=== PATIENT | female | born 1955 | race Caucasian/White ===

== ENCOUNTER 2022-08-26 09:24 | Outpatient (REF) | payer MEDICARE, SELFPAY ==
[2022-08-26 09:43] LABS: MANUAL DIFF FLAG NO
[2022-08-26 10:26] LABS: Appearance Urine Cloudy; Color Urine Dark Yellow; Glucose Urine UA Negative (Negative); Leukocyte Esterase Urine Large (3+) (Negative); Nitrite Urine Positive (Negative); UMIC TRIGGER UACC YES; Urine Blood Negative (Negative); Urine Ketones Trace mg/dL (Negative); Urine Protein Trace mg/dL (Neg-Trace)
[2022-08-26 10:34] LABS: Basophils Percent Auto 0.3 % (0-2); Eosinophils Absolute Auto 0.1 X10*3/uL (0.0-0.4); Eosinophils Percent Auto 1.6 % (0-4); Hematocrit 41.3 % (37.0-47.0); Hemoglobin 13.8 g/dl (12.0-16.0); Imm Gran Abs Auto 0.02 X10*3/uL (0.00-0.03); Imm Gran Pct Auto 0.3 % (0.0-0.4); Lymphocytes Absolute Auto 1.6 X10*3/uL (1.2-4.9); Lymphocytes Percent Auto 23.1 % (20-40); Mean Corpuscular HGB Conc 33.4 g/dl (31.0-35.0); Mean Corpuscular Hemoglobin 31.2 pg (27.0-33.0); Mean Corpuscular Volume 93.4 fL (80.0-98.0); Mean Platelet Volume 10.6 fL (9.4-12.3); Monocytes Absolute Auto 0.6 X10*3/uL (0.1-1.2); Neutrophils Absolute Auto 4.6 x10*3/uL (2.0-8.3); Neutrophils Percent Auto 66.7 % (45-73); Platelet Count 246 X10*3/uL (160-400); Red Blood Count 4.42 X10*6/uL (4.20-5.50); Red Cell Distribution Width 12.5 % (11.0-16.0); White Blood Count 6.9 X10*3/uL (4.8-10.8)
[2022-08-26 10:52] LABS: Bacteria Urine 2+ (None Seen); RBC Urine 0-2 /HPF (0-2); UACC Culture Trigger YES; WBC Urine >50 /HPF (0-5)
[2022-08-26 11:06] LABS: Erythrocyte Sedimentation Rate 45 MM/HR (0-20)
[2022-08-26 11:19] LABS: Alanine Aminotransferase 20 U/L (0-31); Albumin Level 4.5 g/dL (3.5-5.0); Alkaline Phosphatase 135 U/L (39-117); Anion Gap 12 (12-20); Aspartate Amino Transferase 21 U/L (5-31); Bilirubin Total 1.1 mg/dL (0.0-1.0); Blood Urea Nitrogen 24 mg/dL (9-16); C Reactive Protein 1.54 mg/dL (< or = 0.50); Calcium 9.7 mg/dL (8.4-10.2); Carbon Dioxide 27 mmol/L (22-29); Chloride 105 mmol/L (96-108); Cholesterol 232 mg/dL; Estimated Glomerular Filt Rate 54; Glucose Fasting 103 mg/dL (60-99); HDL Cholesterol 52 mg/dL; LDL Cholesterol Calculated 156 mg/dl; Potassium 4.3 mmol/L (3.3-5.1); Rheumatoid Factor < 13.0 IU/mL (<15.0); Sodium 140 mmol/L (135-145); TSH reflex Free T4 1.97 uIU/mL (0.32-4.0); Total Protein 7.5 g/dL (6.5-8.0); Triglycerides 124 mg/dL; Vitamin D 25-OH Total 24.3 ng/mL (>30)
[2022-08-31 12:29] LABS: Cyclic Citrullinated Peptide <16 UNITS
[2022-09-01 12:08] LABS: Anti Nuclear Antibody Screen POSITIVE (NEGATIVE)
== END 2022-08-26 09:25 | disposition home or self-care (01) ==
LOC: HO.LAB 09:24
PROVIDERS: PCP Internal Medicine; Visit Provider Internal Medicine
DX: Z00.00 Encounter for general adult medical examination without abnormal findings (principal); R30.0 Dysuria; M25.50 Pain in unspecified joint; I10 Essential (primary) hypertension; E78.00 Pure hypercholesterolemia, unspecified; E55.9 Vitamin D deficiency, unspecified
CPT/HCPCS: 36415; 80053; 80061; 81001; 82306; 84443; 85025; 85652; 86038; 86039; 86140; 86200; 86431; 87086; 87088; 87186

== ENCOUNTER → 2022-10-12 15:06 | Outpatient (BNVA) | payer MEDICARE, SELFPAY | PROVIDERS: PCP Internal Medicine; Visit Provider Hospitalist | DX: J98.11 Atelectasis (principal); R06.00 Dyspnea, unspecified; K21.9 Gastro-esophageal reflux disease without esophagitis | CPT/HCPCS: 99202 ==

== ENCOUNTER 2022-11-01 08:54 | Outpatient (REF) | payer MEDICARE, SELFPAY ==
--- NOTE | 2022-11-01 | PFT_ITS ---
INDICATIONS: Dyspnea. SPIROMETRY: FEV1 to FVC 85% with an FEV1 2.34 L, which is 95% predicted and FVC of 2.74 L, which is 85% predicted. No significant response to bronchodilator is noted. Maximum voluntary ventilation is 119% predicted. LUNGS VOLUMES: Total lung capacity 82% predicted with an expiratory residual volume of 41% predicted. DIFFUSION CAPACITY: DLCO 78% predicted. COMPARISON: None. INTERPRETATION: No obstructive or restrictive ventilatory defect noted. No significant response to bronchodilator is noted. Maximum voluntary ventilation is actually significantly elevated suggesting good conditioning of the respiratory system. The lung volumes still demonstrate a low-normal total lung capacity, therefore, occult interstitial lung conditions could not be ruled out. Also, the expiratory residual volume is significantly decreased suggesting an elevated BMI, which may be also affecting the overall lung volumes. The patient does still have very mild diffusion impairment that does correct to normal on correcting for the alveolar volume. Clinical correlation warranted. MD MARÍA Btets/MODLorie / [id number]
--- NOTE | ~2022-11-01 | XR_ITS ---
EXAMINATION: XR CHEST 2 VIEWS CLINICAL INFORMATION: Atelectasis. COMPARISON: None. TECHNIQUE: Frontal and lateral views of the chest were obtained. FINDINGS: The heart, great vessels, pulmonary vasculature and mediastinum are normal. The lungs show no focal infiltrate, effusion or pneumothorax. There is no acute osseous abnormality. XR/XR chest 2V IMPRESSION: No active cardiopulmonary disease.
== END 2022-11-01 08:55 | disposition home or self-care (01) ==
LOC: HO.RESP 08:54
PROVIDERS: PCP Internal Medicine; Visit Provider Hospitalist
DX: J98.11 Atelectasis (principal); R06.00 Dyspnea, unspecified
CPT/HCPCS: 71046; 94060; 94727; 94729

== ENCOUNTER → 2022-12-09 14:13 | Outpatient (BNVA) | payer MEDICARE, SELFPAY | PROVIDERS: PCP Internal Medicine; Visit Provider Hospitalist | DX: J98.11 Atelectasis (principal); R06.00 Dyspnea, unspecified; R76.8 Other specified abnormal immunological findings in serum; K21.9 Gastro-esophageal reflux disease without esophagitis | CPT/HCPCS: 99212 ==

== ENCOUNTER 2023-03-19 07:21 | Outpatient (REF) | payer MEDICARE, SELFPAY ==
[2023-03-19 11:27] LABS: MANUAL DIFF FLAG NO
[2023-03-19 11:35] LABS: Basophils Percent Auto 0.2 % (0-2); Eosinophils Absolute Auto 0.1 X10*3/uL (0.0-0.4); Eosinophils Percent Auto 2.4 % (0-4); Hematocrit 33.9 % (37.0-47.0); Imm Gran Abs Auto 0.01 X10*3/uL (0.00-0.03); Imm Gran Pct Auto 0.2 % (0.0-0.4); Lymphocytes Absolute Auto 1.4 X10*3/uL (1.2-4.9); Lymphocytes Percent Auto 24.9 % (20-40); Mean Corpuscular HGB Conc 32.4 g/dl (31.0-35.0); Mean Corpuscular Hemoglobin 31.6 pg (27.0-33.0); Mean Corpuscular Volume 97.4 fL (80.0-98.0); Mean Platelet Volume 11.6 fL (9.4-12.3); Monocytes Absolute Auto 0.5 X10*3/uL (0.1-1.2); Monocytes Percent Auto 7.8 % (2-11); Neutrophils Absolute Auto 3.7 x10*3/uL (2.0-8.3); Neutrophils Percent Auto 64.5 % (45-73); Platelet Count 209 X10*3/uL (160-400); Red Blood Count 3.48 X10*6/uL (4.20-5.50); Red Cell Distribution Width 13.1 % (11.0-16.0); White Blood Count 5.8 X10*3/uL (4.8-10.8)
[2023-03-19 11:40] LABS: Appearance Urine Clear; Color Urine Yellow; Glucose Urine UA Negative (Negative); Leukocyte Esterase Urine Moderate (2+) (Negative); Nitrite Urine Negative (Negative); UMIC TRIGGER UACC YES; Urine Blood Negative (Negative); Urine Ketones Negative (Negative); Urine Protein Negative (Neg-Trace)
[2023-03-19 11:43] LABS: Bacteria Urine 4+ (None Seen); Hyaline Casts Urine 0-2 /LPF (0-2); RBC Urine 0-2 /HPF (0-2); Squamous Epithelial Cell Urine 0-2 /HPF (0-2); UACC Culture Trigger YES; WBC Urine >50 /HPF (0-5)
[2023-03-19 12:10] LABS: Alanine Aminotransferase 13 U/L (0-31); Albumin Level 3.9 g/dL (3.5-5.0); Alkaline Phosphatase 115 U/L (39-117); Anion Gap 10 (12-20); Aspartate Amino Transferase 18 U/L (5-31); Bilirubin Total 0.7 mg/dL (0.0-1.0); Blood Urea Nitrogen 18 mg/dL (9-16); Calcium 9.4 mg/dL (8.4-10.2); Carbon Dioxide 28 mmol/L (22-29); Chloride 108 mmol/L (96-108); Cholesterol 202 mg/dL; Estimated Glomerular Filt Rate > 60; Glucose Fasting 95 mg/dL (60-99); HDL Cholesterol 52 mg/dL; LDL Cholesterol Calculated 133 mg/dl; Potassium 4.3 mmol/L (3.3-5.1); Sodium 142 mmol/L (135-145); Triglycerides 87 mg/dL
[2023-03-19 12:15] LABS: TSH reflex Free T4 0.95 uIU/mL (0.32-4.0); Vitamin D 25-OH Total 51.7 ng/mL (>30)
== END 2023-03-19 07:22 | disposition home or self-care (01) ==
LOC: HO.HMGCLDS 07:21
PROVIDERS: PCP Internal Medicine; Visit Provider Internal Medicine
DX: I10 Essential (primary) hypertension (principal); E78.00 Pure hypercholesterolemia, unspecified; E55.9 Vitamin D deficiency, unspecified; R30.0 Dysuria
CPT/HCPCS: 36415; 80053; 80061; 81001; 82306; 84443; 85025; 87086; 87088; 87186

== ENCOUNTER 2023-03-28 13:20 | Outpatient (AMB) | payer MEDICARE, SELFPAY ==
[2023-03-28 13:21] VITALS: BP 118/80; PULSE 92; O2SAT 96; BMI 30.4
--- NOTE | 2023-03-28 13:21 | MHC.PC.OV ---
Vital Signs 03/28/23 13:21 Height 5 ft 5 in Weight 183 lb BMI 30.4 BP 118/80 Blood Pressure Location Lt brachial Position Sitting Pulse 92 Pulse Source Pulse Oximeter Pulse Oximetry (%) 96 Oxygen Delivery Method Room Air Intake Visit Reasons: Hypertension [employer] Instructor Required: No Accompanied by: Self / Same As Patient Allergies influenza A (H5N1) virus vaccine mo Allergy (Intermediate, Verified 03/28/23 14:25) Unknown Medication List - Last Reconciled 03/28/23 by Keith Adair MD albuterol sulfate 90 mcg/actuation 2 inhalations inhalation Q6H PRN 30 days carisoprodol 350 mg PO BID PRN 30 days cholecalciferol (vitamin D3) 25 mcg PO DAILY dicyclomine 20 mg PO BID famotidine 20 mg PO DAILY PRN gabapentin 300 mg PO TID 90 days ibuprofen-acetaminophen 125-250 mg (Advil Dual Action) 2 tabs PO Q8H PRN lisinopril-hydrochlorothiazide 20-12.5 mg 1 tab PO DAILY 90 days Tobacco use date assessed: 03/28/23 Fall risk assessment: No Falls in past year Last assessed Fall Risk: 03/28/23 Dental Screening Dental Screen Date: 03/28/23 Did you have a dental visit in the last 12 months?: No Did you have a dental problem in the last 6 months where you did not have access to dental care?: No Was dental information given to patient?: No HPI Hypertension HPI Details Patient comes in today for her follow up visit States that she feels okay Denies any headaches or dizziness Denies any chest pains, no shortness of breath No nausea/vomiting, no abdominal pain No change in bowel habits noted Needs her Carisoprodol Rx refilled; would also like to get Rx for Ibuprofen that she can take for her joint pains Had her follow-up labs done last week - to discuss her results [facility] Medical History (Updated 05/21/23 @ 23:42 by Keith Adair MD) Pure hypercholesterolemia Chronic kidney disease (CKD), stage II (mild) RICHARD positive Osteoarthritis of knees, bilateral Atelectasis GERD without esophagitis Obesity (BMI 30-39.9) Benign essential hypertension Pathological fracture of jaw (~1972) Surgical History History of colonoscopy (~2013) History of carpal tunnel surgery of right wrist Hx of emergency section (~1982) Social History Housing: Apartment Alcohol intake: never Patient Tobacco Use Status: Never used Tobacco Smoked in Last 30 Days: No e-Cigarette/Vaping Use: Never Used Use of substances other than those prescribed or required for medical reasons: No Advance Directives: No Advance Directives Information Provided: Yes service: No Current occupational status: retired 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 Cognitive needs: No Hearing needs: No Vision needs: No Questionnaire PHQ-9 Over the last 2 weeks, how often have you been bothered by any of the following problems? 1. Little interest or pleasure in doing things: not at all 2. Feeling down, depressed, or hopeless: not at all 3. Trouble falling or staying asleep, or sleeping too much: not at all 4. Feeling tired or having little energy: not at all 5. Poor appetite or overeating: not at all 6. Feeling bad about yourself - or that you are a failure or have let yourself or your family down: not at all 7. Trouble concentrating on things, such as reading the newspaper or watching television: not at all 8. Moving or speaking so slowly that other people could have noticed. Or the opposite - being so fidgety or restless that you have been moving around a lot more than usual: not at all 9. Thoughts that you would be better off or of hurting yourself in some way: not at all Total score: 0 Depression Screening Interpretation: Negative 11298 - PHQ-9 Billing: Yes Source: Developed by Drs. Brian Nazario, Yue Walden, Harsha Ferreira and colleagues, with an educational eula from [email or web address]. Thrive Questionnaire Date Thrive assessed: 03/28/23 I am a: Patient What is your living situation today?: I have a steady place to live Within the past 12 months, did the food you bought not last and you didn't have the money to get more?: Never true Within the past 12 months, did you worry whether your food would run out before you got money to buy more?: Never true Do you have trouble paying for medicines?: No Do you have trouble getting transportation to medical appointments?: No Do you have trouble paying your heating and electricity bill?: No Do you have trouble taking care of your child, family member or friend?: No Do you have trouble with day-to-day activities such as bathing, preparing meals, shopping, managing finances, etc.?: No Are you currently unemployed and looking for a job?: No Are you interested in more education?: No Please select the resources that you would like help with: None Currently or been in a relationship where the following occur: no concerns reported AUDIT C Alcohol Use Questionnaire (AUDIT-C) 1. How often do you have a drink containing alcohol?: Never 3. How often do you have six or more drinks on one occasion?: Never Total Score: 0 Score Reviewed/Action Taken: Yes WILY-7 AMB Questionnaire WILY-7 Date WILY - 7 assessed: 03/28/23 Feeling nervous, anxious, or on edge: 0 = Not at all Not being able to stop or control worryin = Not at all Worrying too much about different things: 0 = Not at all Trouble relaxin = Not at all Being so restless that it is hard to sit still: 0 = Not at all Becoming easily annoyed or irritable: 0 = Not at all Feeling afraid as if something awful might happen: 0 = Not at all Total WILY-7 score (0-4 normal; 5-9 mild; 10-14 moderate; 15-21 severe): 0 Source: Developed by Drs. Brian Nazario, Yue Walden, Harsha Ferreira and colleagues, with an educational eula from [email or web address]. Review of Systems Const Denies fatigue, Denies fever(s) and Denies headache(s) ENT Denies dysphagia, Denies dizziness, Denies otalgia, Denies headache(s), Denies odynophagia and Denies sore throat Card Denies chest pain, Denies palpitations and Denies dyspnea Resp Denies chest congestion, Denies cough and Denies dyspnea GI Denies abdominal pain, Denies constipation, Denies dysphagia, Denies heartburn, Denies diarrhea, Denies nausea, Denies odynophagia and Denies vomiting Denies difficulty voiding, Reports nocturia, Denies dysuria, Denies urinary incontinence and Denies urinary urgency Musc Reports arthralgias (right knee) Neuro Denies dizziness and Denies headache(s) Endo Denies fatigue and Denies palpitations Physical exam (Primary Care) Vital Signs: Last Vital Signs Pulse 92 03/28/23 13:21 BP 118/80 03/28/23 13:21 Pulse Ox 96 03/28/23 13:21 Oxygen Delivery Method Room Air 03/28/23 13:21 BMI result Body Mass Index 30.4 Tobacco/Smoking Status: Tobacco use Status Tobacco use date assessed 03/28/23 03/28/23 13:25 Patient Tobacco Use Status Never used Tobacco 03/28/23 13:25 Tobacco use type 08/02/22 15:38 e-Cigarette/Vaping Use Never Used 03/28/23 13:25 PHQ-9: PHQ-9 Score PHQ-9: Total score 0 03/28/23 14:29 Depression Screening Interpretation: Negative Thrive Assessment: Date of Thrive Assessment Date Thrive assessed 03/28/23 03/28/23 13:25 Currently or been in a relationship where the following occur: no concerns reported Const General: no acute distress, alert and awake HENMT Ears: TM's normal bilaterally and EAC's normal Throat: Yes posterior oropharynx normal and Yes tonsils normal (no TP congestion) Neck Neck: Yes no lymphadenopathy and Yes supple Resp Auscultation: clear to auscultation bilaterally, no rales and no wheezes Cardio Rate: regular rate Rhythm: regular rhythm Heart sounds: no murmurs GI Palpation (GI): Soft to palpation, nontender and No hepatosplenomegaly present Auscultation: normal bowel sounds Back/Spine/Pelvis Cervical Spine: Cervical spine tenderness (chronic) Thoracic/Lumbar Spine: thoracic and lumbar spine normal to inspection Extrem General: Yes no clubbing, cyanosis or edema Right lower extremity: knee Details: tenderness and normal ROM; no swelling Left lower extremity: knee Details: tenderness (mild) and normal ROM; no swelling Results Reviewed Results Reviewed: Laboratory Tests 03/19/23 03/19/23 03/19/23 07:46 07:46 07:46 WBC 5.8 Hgb 11.0 L D Hct 33.9 L Plt Count 209 Sodium 142 Potassium 4.3 Creatinine 0.83 Estimated GFR > 60 Fasting Glucose 95 Calcium 9.4 AST 18 ALT 13 Triglycerides 87 Cholesterol 202 LDL Cholesterol, Calc 133 HDL Cholesterol 52 25-OH Vitamin D Total 51.7 TSH 0.95 Ur Specific [place] 1.010 Urine Protein Negative Urine Glucose (UA) Negative Urine Blood Negative Assessment and Plan Assessment & Plan (1) Pure hypercholesterolemia: Code(s): E78.00 - Pure hypercholesterolemia, unspecified Plan: Results of her labs done last week reviewed and discussed with patient - advised that her LDL cholesterol level has improved slightly from previous Reinforced low cholesterol diet Will recheck her labs and fasting lipids in 3 to 4 months for follow up (2) Benign essential hypertension: Code(s): I10 - Essential (primary) hypertension Plan: Reinforced low sodium diet - goal is systolic BP of at least 140 mm or less Continue Lisinopril-HCT 20-25 mg QD Patient is reminded to continue monitoring her blood pressure regularly Will have her recheck her labs in 4 months for follow up (3) Dyspnea: Code(s): R06.00 - Dyspnea, unspecified Qualifiers: Dyspnea type: unspecified Qualified Code(s): R06.00 - Dyspnea, unspecified Plan: Continue Trelegy Ellipta 100-62.5-25 mcg 1 inhalation QD for now Follow up with pulmonary as scheduled - is currently undergoing further evaluation but recent chest x-rays and PFTs appear to be normal (4) Cervical spondylosis: Code(s): M47.812 - Spondylosis without myelopathy or radiculopathy, cervical region Plan: Continue Carisoprodol 350 mg 2 tablets Q HS (Rx refilled) and Gabapentin 300 mg BID (5) Osteoarthritis of knees, bilateral: Code(s): M17.0 - Bilateral primary osteoarthritis of knee Qualifiers: Osteoarthritis type: primary Qualified Code(s): M17.0 - Bilateral primary osteoarthritis of knee Plan: Is scheduled for total right knee arthroplasty with Dr. Bates at [facility] on 06/03/2023 Follow up with orthopedics as scheduled (6) GERD without esophagitis: Code(s): K21.9 - Gastro-esophageal reflux disease without esophagitis Plan: Dietary restrictions discussed Continue Famotidine 20 mg QD (7) Chronic kidney disease (CKD), stage II (mild): Code(s): N18.2 - Chronic kidney disease, stage 2 (mild) Plan: Her GFR and renal function appears stable on her recent labs Will continue to monitor her renal function closely (8) Obesity (BMI 30-39.9): Code(s): E66.9 - Obesity, unspecified Plan: Reinforced diet/exercise as tolerated/lose weight Plan Follow up in 4 months Orders: Orders Complete Blood Count Auto Diff 06/22/23 I10 - Essential (primary) hypertension Comprehensive [facility]. Panel Fast 06/22/23 E78.00 - Pure hypercholesterolemia, unspecified Lipid Panel 06/22/23 E78.00 - Pure hypercholesterolemia, unspecified TSH reflex Free T4 06/22/23 E78.00 - Pure hypercholesterolemia, unspecified Varicella IgG Antibody 03/28/23 Z28.39 - Other underimmunization status UA CC w/rflx Micro + Cult 06/22/23 R30.0 - Dysuria Vitamin D 25-OH Total 06/22/23 E55.9 - Vitamin D deficiency, unspecified Medications: New ibuprofen-acetaminophen 125-250 mg (Advil Dual Action) 2 tabs PO Q8H PRN Refilled carisoprodol 350 mg PO BID PRN 60 tabs 0RF neck pain 30 days Coding Level of Care Code Est Pt Level 4 (42017) Diagnoses Pure hypercholesterolemia E78.00 Benign essential hypertension I10 Dyspnea, unspecified type R06.00 Dyspnea type: unspecified Cervical spondylosis M47.812 Primary osteoarthritis of both knees M17.0 Osteoarthritis type: primary GERD without esophagitis K21.9 Chronic kidney disease (CKD), stage II (mild) N18.2 Obesity (BMI 30-39.9) E66.9
== END 2023-03-28 14:49 | disposition home or self-care (01) ==
PROVIDERS: Visit Provider Internal Medicine
DX: E78.00 Pure hypercholesterolemia, unspecified (principal); I12.9 Hypertensive chronic kidney disease with stage 1 through stage 4 chronic kidney disease, or unspecified chronic kidney disease; N18.2 Chronic kidney disease, stage 2 (mild); M47.812 Spondylosis without myelopathy or radiculopathy, cervical region
CPT/HCPCS: 99214

== ENCOUNTER 2023-04-21 07:54 | Emergency (ER) | payer MEDICARE, SELFPAY ==
--- NOTE | ~2023-04-21 | CT_ITS ---
EXAMINATION: CT ABDOMEN AND PELVIS WITH CONTRAST CLINICAL INFORMATION: Right lower quadrant pain. COMPARISON: None available. TECHNIQUE: Multidetector volumetric images were obtained from the superior aspect of the liver through the pubic symphysis following administration 85 mL of Omnipaque 350 intravenous contrast. Sagittal and coronal reformatted images were obtained on the technologist's workstation. Oral contrast: No This CT examination was performed using dose optimization techniques as appropriate, variously including the following: *Automated exposure control *Adjustment of mA and/or kV according to patient size (this includes techniques or standardized protocols for targeted exams where dose is matched to indication/reason for exam; i.e. extremities or head) *Use of iterative reconstruction technique DLP: 626 mGy-cm FINDINGS: LUNG BASES: The visualized lung bases are unremarkable. LIVER, GALLBLADDER, AND BILIARY TREE: Unremarkable. PANCREAS: Severe fatty atrophy no pancreatic ductal dilatation or peripancreatic abnormality. SPLEEN: Unremarkable. ADRENAL GLANDS: Unremarkable. KIDNEYS AND URETERS: The kidneys are normal in size, shape, and attenuation. No hydronephrosis, hydroureter, or calculi seen. No perinephric stranding. BLADDER: Unremarkable. GASTROINTESTINAL TRACT: The stomach, small bowel and appendix are unremarkable. The colon shows a few small diverticuli distally in the sigmoid colon without surrounding abnormality. The rectum is unremarkable. ABDOMINAL WALL: No significant hernia is appreciated. LYMPH NODES: No lymphadenopathy. VASCULAR: Mild prominence of the gonadal veins bilaterally with associated dilatation of left periuterine veins and left. PELVIC VISCERA: Unremarkable. OSSEOUS STRUCTURES: L4-5 and L5-S1 moderate degenerative disc disease and bilateral facet arthropathy. Minimal grade 1 anterolisthesis of L5 over S1 with bilateral spondylolysis. No overt acute/suspicious abnormality. CT/CT abdomen pelvis w IV con IMPRESSION: 1. No acute intra-abdominal/pelvic abnormality to explain the patient's pain. No evidence for acute appendicitis. 2. Mild prominence of the gonadal veins bilaterally with associated dilatation of the left periuterine veins. This is nonspecific, but can be seen with pelvic congestion syndrome in the appropriate clinical setting. 3. Interval sigmoid diverticulosis without evidence for acute diverticulitis. 4. L4-5 and L5-S1 moderate degenerative disc disease and bilateral facet arthropathy. Minimal grade 1 anterolisthesis of L5 over S1 with bilateral spondylolysis.
[2023-04-21 08:01] VITALS: BP 114/64; PULSE 75; RESP 16; TEMP 36.7; O2SAT 95
--- NOTE | 2023-04-21 08:12 | ED_ITS ---
HPI - Abdominal Pain General Chief Complaint: Abdominal Pain Stated Complaint: RLQ/ABD PAIN PER EMS Time Seen by Provider: 04/21/23 07:55 Source: patient Mode of arrival: EMS Limitations: no limitations History of Present Illness HPI narrative: 67 yo female with hx of GERD, CKD, HTN, arthritis here with c/o RLQ pain intermittent x 2 months - has had 2 colonoscopies as routine last one did have polyp not due for another year. She came today due to severe stabbing pain in RLQ that lasted 2 days and made her cry. She denies fevers, n/v/d or urinary symptoms. no unintentional weight loss. MD elicited complaint: abdominal pain Pertinent past history: none Onset (ago): hour(s) (530am today) Pain Consistency: now resolved Location: RLQ Severity: severe Quality: stabbing Radiation: none Migration to: no migration Relieving factors: movement Context: history of similar episodes Related Data Home Medications Medication Instructions Recorded Confirmed cholecalciferol (vitamin D3) 25 25 mcg PO DAILY 10/12/22 03/28/23 mcg (1,000 unit) capsule famotidine 20 mg tablet 20 mg PO DAILY PRN 10/12/22 03/28/23 dicyclomine 20 mg tablet 20 mg PO BID 12/09/22 03/28/23 ibuprofen 125 mg-acetaminophen 250 2 tab PO Q8H PRN 03/28/23 03/28/23 mg tablet (Advil Dual Action) Previous Rx's Medication Instructions Recorded lisinopril 20 1 tab PO DAILY 90 days #90 tabs 11/22/22 mg-hydrochlorothiazide 12.5 mg tablet albuterol sulfate 90 mcg/actuation 2 inh inhalation Q6H PRN shortness 12/21/22 aerosol inhaler of breath or wheezing 30 days #18 grams gabapentin 300 mg capsule 300 mg PO TID 90 days #270 caps 02/14/23 carisoprodol 350 mg tablet 350 mg PO BID PRN neck pain 30 03/28/23 days #60 tabs cefuroxime axetil 250 mg tablet 250 mg PO BID 7 days #14 tabs 04/21/23 Allergies Allergy/AdvReac Type Severity Reaction Status Date / Time influenza A (H5N1) virus Allergy Intermediate Unknown Verified 03/28/23 14:25 vaccine mo Review of Systems Review of Systems Constitutional : No Weight loss, No Fever, No Chills Cardiovascular : No Chest Pain, No SOB, NoEdema Respiratory : No Cough, No Sputum, No Wheezing Gastrointestinal : no Nausea, no Vomiting, no Diarrhea, positive abdominal Pain, No Hematochezia, No Melena Genitourinary : No Dysuria, No Urinary Frequency, No Hematuria, No Urgency Musculoskeletal : No joint pain, No Myalgias, No Joint Swelling Skin : No Skin Lesions, No rash Neuro : No Weakness, No Numbness, No Dizziness, No Headache Psych : No Anxiety/Panic, No Depression All other systems reviewed and are negative. [facility] Past Medical History Attestation statement: The following information was validated with the patient. Medical History RICHARD positive Atelectasis Benign essential hypertension Chronic kidney disease (CKD), stage II (mild) GERD without esophagitis Obesity (BMI 30-39.9) Osteoarthritis of knees, bilateral Pathological fracture of jaw (~1972) Surgical History History of carpal tunnel surgery of right wrist History of colonoscopy (~2013) Hx of emergency section (~1982) Social History Social History Housing: Apartment Alcohol intake: never Patient Tobacco Use Status: Never used Tobacco Smoked in Last 30 Days: No e-Cigarette/Vaping Use: Never Used Use of substances other than those prescribed or required for medical reasons: No Advance Directives: No Advance Directives Information Provided: Yes service: No Current occupational status: retired Current occupation: Working parts counter clerk. Cognitive needs: No Hearing needs: No Vision needs: No Physical Exam ED Vital Signs: Vital Signs - 24 hr 04/21/23 08:01 04/21/23 08:33 04/21/23 09:57 Temperature 98.0 F 98.0 F 97.9 F Pulse Rate 75 71 81 Respiratory Rate 16 16 14 Blood Pressure 114/64 114/64 112/59 L Pulse Oximetry 95 97 96 Oxygen Delivery Method Room Air Room Air Room Air BMI result Body Mass Index 32.2 Appearance: Alert. Oriented X3. No acute distress. Eyes: Pupils equal, round and reactive to light. ENT: Pharynx normal. Neck: Normal inspection. Neck supple. CVS: Normal heart rate and rhythm. Pulses normal. Respiratory: No respiratory distress. Breath sounds normal. Abdomen: Soft and mild RLQ pain Skin: Skin warm and dry. Normal skin color. Normal skin turgor. Extremities: No lower extremity edema. No calf ttp Neuro: Oriented X 3. No motor deficit. No sensory deficit. Course Course Course Narrative: + UA no systemic symptoms will start on ceftin 250mg BID x 7 days and DC Home Medical Decision Making Medical Decision Making [facility] Narrative: 67 yo female with hx of GERD, CKD, HTN, arthritis here with c/o RLQ pain on and off x 2 months without any associated symptoms has been following with routine colonoscopy. At this time will obtain basic labs, CT scan for renal colic, mass, constipation, appendicitis. She has no pain now so possible constipation vs renal colic. NO pain to suggest ischemia at this time. Differential Diagnosis Differential Diagnoses: The differential diagnosis associated with the presentation includes appendicitis, ovarian mass, renal colic, constipation Admission/Observation Consideration of admission/observation: Escalation of care including admission/observation considered no acute findings, VS stable, tolerating PO Lab Data [facility] Lab Attestation statement: I reviewed the patient's lab results. acute UTI 04/21/23 08:24 04/21/23 08:24 Labs: Lab Results 04/21/23 04/21/23 04/21/23 Range/Units 08:24 08:24 09:41 WBC 5.7 (4.8-10.8) X10*3/uL RBC 3.65 L (4.20-5.50) X10*6/uL Hgb 11.8 L (12.0-16.0) g/dl Hct 35.2 L (37.0-47.0) % MCV 96.4 (80.0-98.0) fL MCH 32.3 (27.0-33.0) pg MCHC 33.5 (31.0-35.0) g/dl RDW 12.2 (11.0-16.0) % Plt Count 190 (160-400) X10*3/uL MPV 10.5 (9.4-12.3) fL Immature Gran % (Auto) 0.2 (0.0-0.4) % Neut % (Auto) 68.2 (45-73) % Lymph % (Auto) 22.0 (20-40) % [facility] % (Auto) 7.6 (2-11) % Eos % (Auto) 1.8 (0-4) % Baso % (Auto) 0.2 (0-2) % Lymph # (Auto) 1.3 (1.2-4.9) X10*3/uL [facility] # (Auto) 0.4 (0.1-1.2) X10*3/uL Eos # (Auto) 0.1 (0.0-0.4) X10*3/uL Baso # (Auto) 0.0 (0.0-0.2) X10*3/uL Abs Immat Gran (auto) 0.01 (0.00-0.03) X10*3/uL Absolute Neuts (auto) 3.9 (2.0-8.3) x10*3/uL Absolute Nucleated RBC 0.000 (0.0-0.012) X10*3/uL Nucleated RBC % (auto) 0.0 (0.0-0.2) /100WBC Sodium 141 (135-145) mmol/L Potassium 4.0 (3.3-5.1) mmol/L Chloride 109 H (96-108) mmol/L Carbon Dioxide 25 (22-29) mmol/L Anion Gap 11 L (12-20) BUN 23 H (9-16) mg/dL Creatinine 0.85 (0.5-1.4) mg/dL Estim Creat Clear Calc 70.2 Estimated GFR > 60 Random Glucose 119 H (60-115) mg/dL Calcium 9.6 (8.4-10.2) mg/dL Magnesium 2.0 (1.6-2.6) mg/dL Total Bilirubin 0.6 (0.0-1.0) mg/dL Direct Bilirubin 0.2 (0.0-0.5) mg/dL AST 24 (5-31) U/L ALT 17 (0-31) U/L Alkaline Phosphatase 110 (39-117) U/L Total Protein 7.3 (6.5-8.0) g/dL Albumin 4.0 (3.5-5.0) g/dL Lipase 6 L (8-78) U/L Urine Color Yellow Urine Appearance Clear Urine pH 6.0 (5.0-9.0) Ur Specific [place] 1.025 (1.005-1.025) Urine Protein Negative (Neg-Trace) mg/dL Urine Glucose (UA) Negative (Negative) mg/dL Urine Ketones Negative (Negative) mg/dL Urine Blood Negative (Negative) Urine Nitrite Positive H (Negative) Ur Leukocyte Esterase Moderate (2+) H (Negative) Urine RBC 0-2 (0-2) /HPF Urine WBC 21-50 H (0-5) /HPF Ur Squamous Epith Cells 0-2 (0-2) /HPF Urine Bacteria 4+ (None Seen) Hyaline Casts 0-2 (0-2) /LPF Independent Interpretation I performed an independent interpretation of an: CT Scan (normal appendix) Radiology Impression Discussion of test interpretation with radiology: I have reviewed the radiologist's reading. Independent Historian Clinical information obtained from an independent historian. History obtained from or confirmed by: EMS External Record Review External record reviewed: Office record Prescription Management I considered prescription management with: Antibiotic Medications Administered Discontinued Medications Generic Name Dose Route Start Last Admin Trade Name Freq PRN Reason Stop Dose Admin Iohexol 85 ml 04/21/23 09:11 04/21/23 09:11 Iohexol 350 Mg/Ml 100 Ml Infus..Btl IV 04/21/23 09:12 85 ml ONCE ONE Administration Discharge Plan Discharge Clinical Impression: Acute lower UTI Abdominal pain Qualifiers: Abdominal location: right lower quadrant Qualified Code(s): R10.31 - Right lower quadrant pain Patient Disposition: Home, Self-Care Instructions: Urinary Tract Infection in Women (ED), Abdominal Pain (ED) Additional Instructions: return for worsening pain, fevers, vomiting or any other concerns. take a probiotic while on antibiotic. 1.? No acute intra-abdominal/pelvic abnormality to explain the patient's pain. No evidence for acute appendicitis. 2.? Mild prominence of the gonadal veins bilaterally with associated dilatation of the left periuterine veins. This is nonspecific, but can be seen with pelvic congestion syndrome in the appropriate clinical setting. 3.? Interval sigmoid diverticulosis without evidence for acute diverticulitis. 4.? L4-5 and L5-S1 moderate degenerative disc disease and bilateral facet arthropathy. Minimal grade 1 anterolisthesis of L5 over S1 with bilateral spondylolysis. Prescriptions: New cefuroxime axetil 250 mg tablet 250 mg PO BID 7 Days Qty: 14 0RF No Action albuterol sulfate 90 mcg/actuation HFA aerosol inhaler 2 inh inhalation Q6H PRN (Reason: shortness of breath or wheezing) 30 Days Qty: 18 12RF gabapentin 300 mg capsule 300 mg PO TID 90 Days Qty: 270 1RF famotidine 20 mg tablet 20 mg PO DAILY PRN lisinopril-hydrochlorothiazide 20-12.5 mg tablet 1 tab PO DAILY 90 Days Qty: 90 1RF Advil Dual Action 125-250 mg tablet 2 tab PO Q8H PRN carisoprodol 350 mg tablet 350 mg PO BID PRN (Reason: neck pain) 30 Days Qty: 60 0RF dicyclomine 20 mg tablet 20 mg PO BID cholecalciferol (vitamin D3) 25 mcg (1,000 unit) capsule 25 mcg PO DAILY
[2023-04-21 08:27] LABS: MANUAL DIFF FLAG NO
[2023-04-21 08:33] VITALS: BP 114/64; BP 148/88; PULSE 71; PULSE 81; RESP 16; TEMP 36.7; O2SAT 97; O2SAT 99; BMI 32.2
[2023-04-21 08:33] LABS: Basophils Percent Auto 0.2 % (0-2); Eosinophils Absolute Auto 0.1 X10*3/uL (0.0-0.4); Eosinophils Percent Auto 1.8 % (0-4); Hematocrit 35.2 % (37.0-47.0); Hemoglobin 11.8 g/dl (12.0-16.0); Imm Gran Abs Auto 0.01 X10*3/uL (0.00-0.03); Imm Gran Pct Auto 0.2 % (0.0-0.4); Lymphocytes Absolute Auto 1.3 X10*3/uL (1.2-4.9); Mean Corpuscular HGB Conc 33.5 g/dl (31.0-35.0); Mean Corpuscular Hemoglobin 32.3 pg (27.0-33.0); Mean Corpuscular Volume 96.4 fL (80.0-98.0); Mean Platelet Volume 10.5 fL (9.4-12.3); Monocytes Absolute Auto 0.4 X10*3/uL (0.1-1.2); Monocytes Percent Auto 7.6 % (2-11); Neutrophils Absolute Auto 3.9 x10*3/uL (2.0-8.3); Neutrophils Percent Auto 68.2 % (45-73); Platelet Count 190 X10*3/uL (160-400); Red Blood Count 3.65 X10*6/uL (4.20-5.50); Red Cell Distribution Width 12.2 % (11.0-16.0); White Blood Count 5.7 X10*3/uL (4.8-10.8)
[2023-04-21 08:42] LABS: Alanine Aminotransferase 17 U/L (0-31); Alkaline Phosphatase 110 U/L (39-117); Anion Gap 11 (12-20); Aspartate Amino Transferase 24 U/L (5-31); Bilirubin Direct 0.2 mg/dL (0.0-0.5); Bilirubin Total 0.6 mg/dL (0.0-1.0); Blood Urea Nitrogen 23 mg/dL (9-16); Calcium 9.6 mg/dL (8.4-10.2); Carbon Dioxide 25 mmol/L (22-29); Chloride 109 mmol/L (96-108); Creatinine Clr Calc Pharmacy 70.2; Estimated Glomerular Filt Rate > 60; Glucose Random 119 mg/dL (60-115); Lipase 6 U/L (8-78); Sodium 141 mmol/L (135-145); Total Protein 7.3 g/dL (6.5-8.0)
--- NOTE | 2023-04-21 09:09 | PC.NURSE ---
PT IS A/O X 4 NO SOB/NEGRO NOTED SPEAKS IN FULL SENTENCES. LUNGS - CTA. HEART SOUNDS - REGULAR. ABD SOFT AND NON-TENDER, BS + XX 4 QUADS. NO EDEMA NOTED. PT RETURNED FROM CT SCAN. HEPLOCK #20 TO L AC. PT/ AWARE OF PLAN OF CARE.
[2023-04-21] MEDS: iohexoL 350 MG/ML 100 ML INFUS..BTL 85 ML IV (09:11)
[2023-04-21 09:57] VITALS: BP 112/59; PULSE 81; RESP 14; TEMP 36.6; O2SAT 96
[2023-04-21 10:08] LABS: Appearance Urine Clear; Color Urine Yellow; Glucose Urine UA Negative (Negative); Leukocyte Esterase Urine Moderate (2+) (Negative); Nitrite Urine Positive (Negative); Specific Gravity - Urine 1.025 (1.005-1.025); UMIC TRIGGER UACC YES; Urine Blood Negative (Negative); Urine Ketones Negative (Negative); Urine Protein Negative (Neg-Trace)
[2023-04-21 10:13] LABS: Bacteria Urine 4+ (None Seen); Hyaline Casts Urine 0-2 /LPF (0-2); RBC Urine 0-2 /HPF (0-2); Squamous Epithelial Cell Urine 0-2 /HPF (0-2); UACC Culture Trigger YES; WBC Urine 21-50 /HPF (0-5)
== END 2023-04-21 10:52 | disposition home or self-care (01) ==
PROVIDERS: Emergency Provider Emergency Medicine; PCP Internal Medicine
DX: N39.0 Urinary tract infection, site not specified (principal); B96.1 Klebsiella pneumoniae [K. pneumoniae] as the cause of diseases classified elsewhere; R10.31 Right lower quadrant pain; I12.9 Hypertensive chronic kidney disease with stage 1 through stage 4 chronic kidney disease, or unspecified chronic kidney disease; N18.30 Chronic kidney disease, stage 3 unspecified; Z79.899 Other long term (current) drug therapy
CPT/HCPCS: 36415; 74177; 80048; 80076; 81001; 81003; 83690; 83735; 85025; 87086; 87088; 87186; 99284; Q9967